=== PATIENT | female | born 1995 | race Caucasian/White ===

== ENCOUNTER 2018-08-14 10:08 | Emergency (ER) | payer OTHER ==
[2018-08-14 11:33] LABS: URINE BLOOD (Dip) POC 3+ (NEGATIVE); URINE GLUCOSE (Dip) POC Negative (NEGATIVE); URINE KETONES (Dip) POC Negative (NEGATIVE); URINE LEUKOCYTE EST (Dip) POC Negative (NEGATIVE); URINE NITRITE (Dip) POC Negative (NEGATIVE); URINE TOTAL PROTEIN POC 2+ (NEGATIVE)
[2018-08-14] MEDS: HYDROCODONE/APAP (5/325) TAB PO (11:36)
[2018-08-14] MEDS: ONDANSETRON (ODT) 4 MG TAB ODT (11:36)
== END 2018-08-14 13:16 | disposition home or self-care (01) ==
LOC: FTE 10:08
DX: R51 Headache (principal); R11.0 Nausea; R40.2142 Coma scale, eyes open, spontaneous, at arrival to emergency department; R40.2362 Coma scale, best motor response, obeys commands, at arrival to emergency department; R40.2252 Coma scale, best verbal response, oriented, at arrival to emergency department; Z86.73 Personal history of transient ischemic attack (TIA), and cerebral infarction without residual deficits
CPT/HCPCS: 70450; 81003; 81025; 99284-25